=== PATIENT | female | born 1990 | race Caucasian/White ===

== ENCOUNTER 2017-05-06 12:14 | Day surgery (SDC) | payer OTHER ==
[2017-05-04 13:50] LABS: HEMATOCRIT 38.2 % (36.0-47.0); HEMOGLOBIN 13.1 g/dL (12.0-15.5); MEAN CORPUSCULAR HGB CONC 34.3 g/dL (32.0-36.0); MEAN CORPUSCULAR VOLUME 87 fl (80-97); PLATELET COUNT 213 10^3/uL (150-450); RED BLOOD COUNT 4.37 10^6/uL (3.72-5.28); RED CELL DISTRIBUTION WIDTH 12.9 % (11.5-14.0); WHITE BLOOD COUNT 5.4 10^3/uL (4.0-10.5)
[2017-05-04 13:59] LABS: ANION GAP 10 (5-19); BLOOD UREA NITROGEN 10 mg/dL (7-20); CALCIUM 10.3 mg/dL (8.4-10.2); CARBON DIOXIDE 28 mmol/L (22-30); CHLORIDE 102 mmol/L (98-107); GLUCOSE 77 mg/dL (75-110); POTASSIUM 4.4 mmol/L (3.6-5.0); SODIUM 140.4 mmol/L (137-145)
[~2017-05-06 12:14] MED LIST: BUPIVACAINE HCL 0.5%-EPI 1:200000 INJ/PF 30 ML VIAL ONE; LIDOCAINE 0.5% INJ-PF (5 MG/ML) 50 ML SDV SUBCUT PRN; NORMAL SALINE 1000 ML (RENAL PATIENTS) IV PRN
[2017-05-06] MEDS ORDERED: SCOPOLAMINE HYDROBROMIDE 1.5 MG PATCH.TD72 ONE (13:21)
[2017-05-06] MEDS ORDERED: ALBUTEROL SULFATE 0.083% NEB 2.5 MG/3 ML AMPUL NEB ONE (13:31)
[2017-05-06] MEDS ORDERED: SUCCINYLCHOLINE CHLORIDE INJ 200 MG/10 ML VIAL ONE (14:18)
[2017-05-06] MEDS ORDERED: EPHEDRINE SULFATE INJ 50 MG/1 ML AMPULE ONE (15:56)
[2017-05-06] MEDS ORDERED: MIDAZOLAM 2 MG/2 ML INJ ONE (15:56)
[2017-05-06] MEDS ORDERED: PROPOFOL INJ 200 MG/20 ML VIAL IV ONE (15:57)
[2017-05-06] MEDS ORDERED: ONDANSETRON HCL INJ/PF 4 MG/2 ML SDV ONE (15:57)
[2017-05-06] MEDS ORDERED: DEXAMETHASONE SOD PHOSPHATE INJ 4 MG/1 ML VIAL ONE (15:57)
[2017-05-06] MEDS ORDERED: HYDROMORPHONE HCL INJ/PF 2 MG/ML AMPULE ONE (15:57)
[2017-05-06] MEDS ORDERED: FENTANYL CITRATE INJ/PF 100 MCG/2 ML AMPUL IV PRN ×3 (16:59)
[2017-05-06] MEDS ORDERED: PROMETHAZINE HCL INJ 25 MG/1 ML VIAL IV PRN (16:59)
[2017-05-06] MEDS ORDERED: DIPHENHYDRAMINE HCL 50 MG/ML VIAL IV PRN (16:59)
[2017-05-06] MEDS ORDERED: MEPERIDINE HCL/PF INJ 25 MG/1 ML DISP.SYRIN IV PRN (16:59)
[2017-05-06] MEDS ORDERED: FENTANYL CITRATE INJ/PF 100 MCG/2 ML AMPUL ONE (17:04)
[2017-05-06] MEDS ORDERED: MEPERIDINE HCL/PF INJ 25 MG/1 ML DISP.SYRIN ONE (17:09)
[2017-05-06] MEDS ORDERED: RINGERS SOLUTION,LACTATED 1,000 ML IV PRN (17:12)
[2017-05-06] MEDS ORDERED: NALOXONE HCL INJ/PF 0.4 MG/1 ML SDV ONE (17:28)
[2017-05-06 19:25] VITALS: BP 106/69
--- NOTE | 2017-05-09 08:58 | OPERATIVE REPORT E ---
Operative Report NAME: RADHA SANDRA : 1990 AGE: 26Y DATE OF SURGERY: 05/06/2017 ROOM: PREOPERATIVE DIAGNOSES: 1. Chronic tonsillitis. 2. Tonsillar hypertrophy. POSTOPERATIVE DIAGNOSES: 1. Chronic tonsillitis. 2. Tonsillar hypertrophy. OPERATION PERFORMED: Bilateral tonsillectomy. Patient age greater than 12. SURGEON: NGHIA TORRES D.O. ANESTHESTIC: General endotracheal tube. ANESTHESIA STAFF: KENNEDI Chavez ESTIMATED BLOOD LOSS: 5 mL. FLUIDS: 1000 mL COMPLICATIONS: None. DRAINS: None. SPONGE COUNT: Verified. MATERIALS FORWARDED SPECIMEN: Left and right tonsillar tissue. FINDINGS: 1. The tonsils were noted to be 2 to 3+ in size, were cryptic in appearance, and were with tonsillar debris present bilateral. 2. The soft palatal tissues were redundant in nature and the uvula was unremarkable in appearance. INDICATIONS: This is a 26-year-old white female patient who was seen and evaluated in the [facility] office. The patient had been referred for, and she complained of, a history of chronic tonsillitis symptoms over the years. Her history is consistent with keratosis pharyngeus. The patient complains of regular sore throat discomfort and tonsillar debris that she needs to deal with and remove on a regular basis. The patient has desired to undergo tonsil surgery over the years to move beyond her tonsil issues. After extensive discussion with the patient, recommendation and plan was made to proceed with a tonsillectomy. The procedure and all of its risks and complications were all discussed in detail. The patient voiced an understanding of the described surgical plan, agreed to proceed, and consent was obtained. PROCEDURE: The patient was taken to the main operating room and placed on the operating room table in the supine position. Appropriate monitors were placed. Using mask and IV access, general anesthesia was induced. Injection of local anesthetic with epinephrine for tonsil block. The patient was next transorally intubated without difficulty. The patient was rotated 90 degrees and positioned for tonsil surgery. The patient's lips, teeth, tongue and inside of the mouth were inspected and noted to be without defects. There was a mouth gag inserted. It was opened, and the patient was placed into suspension. There was a soft catheter placed through the patient's nose that was used to suspend the soft palate. Findings are as noted above. At this point, the plasma J-hook device was used to dissect and remove tonsillar tissue on each side. This device was also used to provide adequate hemostasis. Saline irritation was performed and suctioned. There was adequate hemostasis noted. The soft catheter was next released and removed from the patient's nose. The mouth gag was removed from the patient's mouth without difficulty. There was no damage to the lips, teeth, tongue, gums, or inside of the mouth. The patient was then returned to the anesthesia staff and was allowed to emerge from general anesthesia. The patient was extubated in the main operating room and was then transported to the post-anesthesia recovery unit in stable condition. There were no complications. DICTATING PHYSICIAN: NGHIA TORRES D.O. [id number] Y#: [id number] ID: [id number] JOB#: [id number] ACCT: [id number] cc:NGHIA TORRES D.O. >
--- NOTE | 2017-05-09 14:58 | OPERATIVE REPORT E ---
Operative Report NAME: RADHA SANDRA : 1990 AGE: 26Y DATE OF SURGERY: 05/06/2017 ROOM: PREOPERATIVE DIAGNOSES: 1. CHRONIC TONSILLITIS. 2. TONSILLAR HYPERTROPHY. POSTOPERATIVE DIAGNOSIS: 1. CHRONIC TONSILLITIS. 2. TONSILLAR HYPERTROPHY. OPERATION: Bilateral tonsillectomy. PATIENT AGE: Greater than 12. SURGEON: NGHIA TORRES D.O. ANESTHESIA: General endotracheal tube. ANESTHESIA STAFF: KENNEDI Chavez. ESTIMATED BLOOD LOSS: 5 mL. FLUIDS: 1000 mL COMPLICATIONS: None. DRAINS: None. SPONGE COUNT: Verified. MATERIALS FORWARDED SPECIMEN: Left and right tonsillar tissue. FINDINGS: 1. The tonsils were noted to be 2 to 3+ in size, were cryptic in appearance, and were with tonsillar debris present bilateral. 2. The soft palatal tissues were redundant in nature and the uvula was unremarkable in appearance. INDICATIONS: This is a 26-year-old white female who was seen and evaluated in the [facility] office. The patient had been referred for, and she complained of, a history of chronic tonsillitis symptoms over the years with history consistent with keratosis pharyngeus. The patient complains of regular sore throat discomfort and tonsillar debris that she needs to deal with and remove on a regular basis. The patient has desired to undergo tonsil surgery over the years to move beyond her tonsil issues. After extensive discussion with the patient, recommendation and plan was made to proceed with a tonsillectomy. The procedure and all of its risks and complications were all discussed in detail. The patient voiced an understanding of the described surgical plan, agreed to proceed, and consent was obtained. PROCEDURE: The patient was taken to the main operating room and placed on the operating room table in the supine position. Appropriate monitors were placed. Using mask and IV access, general anesthesia was induced. . The patient was next transorally intubated without difficulty. The patient was rotated 90 degrees and positioned for tonsil surgery. The patient's lips, teeth, tongue and inside of the mouth were inspected and noted to be without defects. There was a mouth gag inserted. It was opened, and the patient was placed into suspension. There was a soft catheter placed through the patient's nose that was used to suspend the soft palate. Findings are as noted above. At this point, the plasma J-hook device was used to dissect and remove tonsillar tissue on each side. This device was also used to provide adequate hemostasis. Saline irritation was performed and suctioned. There was adequate hemostasis noted. The soft catheter was next released and removed from the patient's nose. The mouth gag was removed from the patient's mouth without difficulty. There was no damage to the lips, teeth, tongue, gums, or inside of the mouth. The patient was then returned to the anesthesia staff and was allowed to emerge from general anesthesia. The patient was extubated in the main operating room and was then transported to the post-anesthesia recovery unit in stable condition. There were no complications. DICTATING PHYSICIAN: NGHIA TORRES D.O. [id number] PHY#: [id number] ID: [id number] JOB#: [id number] ACCT: [id number] cc:NGHIA TORRES D.O. >
== END 2017-05-06 19:25 | disposition home or self-care (01) ==
LOC: OROUT 12:14
PROVIDERS: ATTEND Otolaryngology
PROC: 0CTPXZZ Resection of Tonsils, External Approach (ICD-10-PCS; principal; 2017-05-06 14:15)
DX: J35.01 Chronic tonsillitis (principal); J45.909 Unspecified asthma, uncomplicated; Z79.51 Long term (current) use of inhaled steroids; E11.9 Type 2 diabetes mellitus without complications; G47.33 Obstructive sleep apnea (adult) (pediatric)
CPT/HCPCS: 42826; 36415; 82962; 85027; 80048; 88304 ×2; J2250; J3490; J1100; J3010; J2175; J1170; J0330; J2405; J2704; 170; J2310